=== PATIENT | female | born 1940 | race Caucasian/White ===

== ENCOUNTER 2022-09-02 06:09 | Inpatient (IN) | payer MEDICARE, OTHER ==
[~2022-09-02] VITALS: Ht 160 cm; Wt 80.2 kg
[2022-09-02] VITALS (32 sets, daily range): BP systolic 88–158; BP diastolic 44–89; PULSE 43–114; RESP 16–21; O2SAT 95–100
[2022-09-02] MEDS ORDERED: piperacillin/tazo 4.5gm/100ml 100 ML IV STA (06:14)
[2022-09-02] MEDS ORDERED: rocuronium 10mg/ml inj IV STA (06:14)
[2022-09-02] MEDS ORDERED: etomidate 2mg/ml inj. IV STA (06:14)
[2022-09-02] MEDS ORDERED: vancomycin/NS 1 GM ADD-VANTAGE 250 ML X 1 DOSE IV ONE (06:25)
[2022-09-02] MEDS ORDERED: propofol 1000mg/100ml bottle 100 ML IV SCH (06:25)
[2022-09-02] MEDS ORDERED: dexamethasone sod phosphate 10mg/ml inj IV STA (06:27)
[2022-09-02] MEDS ORDERED: normal saline 1000ml 1,000 ML IV ONE ×2 (06:30→07:55)
[2022-09-02] MEDS ORDERED: acetaminophen 650mg rectal suppository RC ONE (06:30)
--- NOTE | 2022-09-02 06:32 | NUR ---
ET placed 22 at the teeth positive color change, temp pierre initiated, soft restraints administered, oral gastric tube placed positive gastric contents with low intermitent suctioning.
--- NOTE | 2022-09-02 06:33 | NUR ---
Difficult airway airway per MD, edematous facial neck swelling noted. Addendum: 09/02/22 at 0634 by Jodee Carrillo RT Amended: Links added.
[2022-09-02] MEDS: propofol 1000mg/100ml bottle 100 ML IV SCH ×2 (06:53→13:46)
[2022-09-02 06:54] LABS: ABG BASE EXCESS -5.6 mmol/L (-2.0-2.0); ABG HCO3 17.9 mmol/L (22.0-26.0); ABG OXYGEN SATURATION 99.2 % (94-97); ABG PCO2 (T) 33.3 mmHg (32.0-45.0); ABG PO2 (T) 257.5 mmHg (75.0-100.0); ALLEN'S TEST POSITIVE; FCOHb 0.1 % (0.0-3.9); FMetHb 0.3 % (0.0-1.5); FO2Hb 98.8 % (94-97); PATIENT TEMPERATURE 39.9; PEEP 5 cm H2O; RESPIRATORY RATE 16 b/min; TIDAL VOLUME 400 mL; TOTAL HEMOGLOBIN 12.4 G/dl (12.0-16.0)
[2022-09-02 06:56] LABS: BASOPHILS # (AUTO) 0.1 X10'3 (0-0.2); BASOPHILS % (AUTO) 0.4 % (0-1); EOSINOPHILS # (AUTO) 0.1 X10'3 (0-0.9); EOSINOPHILS % (AUTO) 0.3 % (0-6); HEMATOCRIT 34.7 % (35.0-45.0); HEMOGLOBIN 11.3 g/dl (12.0-16.0); LYMPHOCYTES # (AUTO) 1.9 X10'3 (1.1-4.8); LYMPHOCYTES % (AUTO) 5.3 % (21-51); MEAN CORPUSCULAR HEMOGLOBIN 29.4 PG (27.0-31.0); MEAN CORPUSCULAR HGB CONC 32.5 g/dL (33.0-36.5); MEAN CORPUSCULAR VOLUME 90.5 FL (78-98); MEAN PLATELET VOLUME 8.9 FL (7.4-10.4); MONOCYTES # (AUTO) 2.1 X10'3 (0-0.9); NEUTROPHILS # (AUTO) 31.1 X10'3 (1.8-7.7); PLATELET COUNT 142 X10'3 (140-440); RED BLOOD COUNT 3.83 X10'6 (4.20-5.60); RED CELL DISTRIBUTION WIDTH 18.8 % (11.5-14.5)
[2022-09-02 07:11] LABS: CLARITY,URINE SLIGHTLY CLOUDY (Clear); COLOR,URINE STRAW (Yellow); GLUCOSE, URINE NEGATIVE (Neg); KETONES,URINE NEGATIVE (Neg); LEUKOCYTE ESTERASE ,URINE TRACE (Neg); NITRITES, URINE NEGATIVE (Neg); OCCULT BLOOD,URINE SMALL (Neg); PH,URINE 5.5 (4.8-8.0); PROTEIN,URINE 100 mg/dl (Neg); UROBILINOGEN,URINE 0.2 E.U/dL (0.2-1.0)
[2022-09-02 07:13] LABS: ALANINE AMINOTRANSFERASE 8 U/L (12-78); ALBUMIN 2.9 G/DL (3.4-5.0); ALBUMIN/GLOBULIN RATIO 0.7 (1.1-1.5); ALKALINE PHOSPHATASE 86 IU/L (46-116); ANION GAP 17 (8-16); ASPARTATE AMINO TRANSFERASE 16 U/L (10-37); BILIRUBIN,TOTAL 0.4 MG/DL (0.1-1.0); BLOOD UREA NITROGEN 65 MG/DL (7-18); BUN/CREATININE RATIO 30.4 (10.0-20.0); CALCIUM 9.6 MG/DL (8.5-10.1); CHLORIDE 108 MMOL/L (99-107); CREATININE 2.14 MG/DL (0.40-0.90); GLUCOSE 126 MG/DL (70-104); POTASSIUM 3.6 MMOL/L (3.5-5.1); SODIUM 145 MMOL/L (135-145); TOTAL CARBON DIOXIDE 20.5 MMOL/L (24-32); TOTAL PROTEIN 7.3 G/DL (6.4-8.2); eGFR 22 ML/MIN
[2022-09-02 07:19] LABS: WHITE BLOOD COUNT 35.3 X10'3 (4.5-11.0)
[2022-09-02] MEDS ORDERED: iohexol 300mg/ml 100ml inj. ONE (07:27)
[2022-09-02 07:30] LABS: UA COLLECTION TYPE FOLEY CATH
[2022-09-02 07:32] LABS: BACTERIA,URINE 4+ /HPF (Neg); COARSE GRANULAR CAST 0-3 /LPF (NEGATIVE); MUCUS STRANDS NONE SEEN /LPF (Neg); RBC,URINE 0-2 /HPF (0-2); SQUAMOUS EPITHELIAL CELL,UR FEW /LPF (FEW)
[2022-09-02 07:33] LABS: WBC CLUMPS,URINE FEW /HPF (NEGATIVE)
--- NOTE | 2022-09-02 07:55 | NUR ---
CENTRAL CONTROL ROOM OPERATOR AT BEDSIDE
[2022-09-02] MEDS ORDERED: rocuronium 10mg/ml inj IV ONE (08:00)
[2022-09-02] MEDS ORDERED: etomidate 2mg/ml inj. ONE (08:00)
[2022-09-02] MEDS ORDERED: magnesium hydroxide 30ml (MOM) UD suspension PO PRN (08:10)
[2022-09-02] MEDS ORDERED: ondansetron/PF 4mg/2ml inj IV PRN (08:10)
[2022-09-02] MEDS ORDERED: HYDROcodone/acetaminophen 5mg/325mg tablet PO PRN (08:10)
[2022-09-02] MEDS ORDERED: HYDROcodone/acetaminophen 10/325mg tab PO PRN (08:10)
[2022-09-02] MEDS: normal saline 1000ml 1,000 ML IV SCH (08:10)
[2022-09-02] MEDS ORDERED: acetaminophen 325mg tablet PO PRN (08:10)
[2022-09-02 08:14] LABS: ANISOCYTOSIS 2+; PLATELET ESTIMATE NORMAL; TOTAL CELLS COUNTED 100
--- NOTE | 2022-09-02 08:25 | NUR ---
RETURN TO CT, PT TOLERATED WELL.
[2022-09-02] MEDS: NORepinephrine 8mg/ 250ml NS 250 ML IV SCH ×2 (08:30→23:40)
[2022-09-02 09:12] LABS: TRIGLYCERIDES 100 MG/DL (20-135)
[2022-09-02 10:03] LABS: MAGNESIUM 1.5 MG/DL (1.5-2.4); PHOSPHORUS 3.8 MG/DL (2.3-4.5)
--- NOTE | 2022-09-02 10:30 | NUR ---
Received pt from ER via gurney, sedated & intubated. Hemodynamically stable.
[2022-09-02] MEDS ORDERED: LISI10TA27 PO (11:01)
[2022-09-02] MEDS ORDERED: fentaNYL/PF 50MCG/1 ML 2ML syringe IV PRN (11:20)
[2022-09-02] MEDS ORDERED: amiodarone 200mg tablet PO SCH (12:00)
[2022-09-02] MEDS: FENTANYL-0.9 % NACL/PF 100 ML IV PRN (12:06)
[2022-09-02] MEDS: pantoprazole 40MG/NS 100ML BAG 100 ML IV SCH (12:06)
[2022-09-02] MEDS ORDERED: piperacillin/tazo 3.375gm/50ml 50 ML IV SCH (12:21)
[2022-09-02] MEDS ORDERED: AMIO200T27 PO (12:38)
[2022-09-02] MEDS ORDERED: FAMO-49 PO (12:39)
[2022-09-02] MEDS ORDERED: HEPA100D36 SQ (12:40)
[2022-09-02] MEDS ORDERED: METH-348 PO (12:41)
[2022-09-02] MEDS ORDERED: LOP25T PO (12:41)
[2022-09-02] MEDS ORDERED: MULT-1085 PO (12:42)
[2022-09-02] MEDS ORDERED: MIRT-87 PO (12:42)
[2022-09-02] MEDS ORDERED: VENL-191 PO (12:44)
--- NOTE | 2022-09-02 12:52 | NUR ---
TF consult: Pt admit from [facility] for right sided neck swelling. Per H&P while in ED pt was lethargic and hypertensive with oxygen saturation at 91% and pt was intubated for respiratory failure. Pt with septic shock per H&P. Propofol visualized at bedside to be running at 7.11 mL/hr providing 188 kcal/day. TC to [facility] who states pt was on a regular SB6 diet and eating poorly, documented with 25% PO intake of one meal out of 3-4 meals. Per [facility] pt arrived on 08/31 already receiving TPN which was titrated down to 40 mL/hr using Clinimix non-E 06/21 in hopes of improving appetite and subsequently PO intake. Per [facility] pt with two BMs on 09/01, indicating return of bowel function s/p colectomy and ileostomy placement. [facility] states pt was to receive HD 09/01 however it was held. [facility] also states pt with a bed scaled wt of 78 kg taken 08/31. All information obtained from [facility] was d/w current bedside RN who confirms gas in ileostomy. D/w RN that pt will need a BSS following extubation prior to PO diet advancement as pt was on a texture modified diet at [facility] as well as the likelihood in needing an NGT s/p extubation to assist with meeting patient's estimated nutrient needs given reported poor PO intake SUPERVISOR PAIRING AND INSPECTING. Will continue to follow closely and make recommendations as appropriate. Recommendations: 1) Given Propofol at 7.11 mL/hr (188 kcal/day), continuous Vital HP with 60 mL/hr goal rate to provide 1440 mL total volume/day, 1440 kcal, 126 g protein, and 1204 mL water 2) Monitor Propofol rate and need to adjust recs; IF Propofol discontinued, continuous Vital HP with 65 mL/hr goal rate 3) Additional water flush per MD given renal status; monitor serum Na 4) Prealbumin q Tuesday/; daily scaled weights 5) Routine bowel care; LBM 09/01 x 2 per [facility] 6) BSS with ST prior to PO diet advancement following extubation given texture modified diet at [facility] Addendum: 09/02/22 at [address] Amended: Links added.
[2022-09-02] MEDS: piperacillin/tazo 3.375gm/50ml 50 ML IV SCH ×2 (13:46→20:51)
[2022-09-02] MEDS ORDERED: dexamethasone inj 4 MG in dextrose 5%-water 100 ML IV SCH (14:00)
[2022-09-02] MEDS ORDERED: dexamethasone inj 4 MG in normal saline 50ml IV soln 50 ML IV SCH (14:09)
[2022-09-02] MEDS: dexamethasone inj 4 MG in normal saline 50ml IV soln 50 ML IV SCH ×2 (15:08→20:50)
[2022-09-02] MEDS ORDERED: heparin, porcine 5000 units/ml vial SQ SCH ×2 (16:00)
[2022-09-02] MEDS: ipratropium/albuterol 3ml nebule NEB SCH ×2 (16:44→19:17)
--- NOTE | 2022-09-02 17:19 | NUR ---
Pt remains sedated on minimal dose of Fentanyl & Propofol. In sinus andrew. Occ drops briefly to the high 30's. BP stable. Scant secretions from ETT. FiO2 weaned to 30%. Duonebs started for high peak pressures. Good UO. Dr. Coyle into see pt. Stated dialysis not needed today. No increase in swelling of right neck noted. TF started for nutritional support.
[2022-09-02] MEDS: heparin, porcine 5000 units/ml vial SQ SCH (20:51)
[2022-09-02] MEDS ORDERED: amiodarone 150mg/dext, iso-os 100 ML IV ONE (22:05)
[2022-09-02 22:36] LABS: ALANINE AMINOTRANSFERASE 14 U/L (12-78); ALBUMIN 2.2 G/DL (3.4-5.0); ALBUMIN/GLOBULIN RATIO 0.6 (1.1-1.5); ALKALINE PHOSPHATASE 71 IU/L (46-116); ANION GAP 14 (8-16); ASPARTATE AMINO TRANSFERASE 9 U/L (10-37); BILIRUBIN,TOTAL 0.3 MG/DL (0.1-1.0); BLOOD UREA NITROGEN 72 MG/DL (7-18); BUN/CREATININE RATIO 31.4 (10.0-20.0); CALCIUM 8.7 MG/DL (8.5-10.1); CHLORIDE 113 MMOL/L (99-107); CREATININE 2.29 MG/DL (0.40-0.90); GLUCOSE 147 MG/DL (70-104); MAGNESIUM 1.4 MG/DL (1.5-2.4); PHOSPHORUS 5.1 MG/DL (2.3-4.5); POTASSIUM 3.8 MMOL/L (3.5-5.1); SODIUM 145 MMOL/L (135-145); TOTAL CARBON DIOXIDE 18.2 MMOL/L (24-32); TOTAL PROTEIN 6.1 G/DL (6.4-8.2); eGFR 21 ML/MIN
[2022-09-02] MEDS: amiodarone/D5 360MG/200ML BAG 200 ML IV SCH (23:31)
[2022-09-03] VITALS (46 sets, daily range): BP systolic 94–142; BP diastolic 43–84; PULSE 73–112; RESP 16–27; O2SAT 94–99
[2022-09-03] MEDS: ipratropium/albuterol 3ml nebule NEB SCH ×7 (00:12→23:09)
[2022-09-03] MEDS: dexamethasone inj 4 MG in normal saline 50ml IV soln 50 ML IV SCH ×4 (02:08→19:57)
[2022-09-03] MEDS: normal saline 1000ml 1,000 ML IV SCH ×2 (02:08→10:50)
[2022-09-03 03:23] LABS: ABG BASE EXCESS -8.5 mmol/L (-2.0-2.0); ABG HCO3 16.1 mmol/L (22.0-26.0); ABG OXYGEN SATURATION 97.2 % (94-97); ABG PCO2 (T) 30.1 mmHg (32.0-45.0); ABG PO2 (T) 105.5 mmHg (75.0-100.0); ALLEN'S TEST POSITIVE; FCOHb 0.3 % (0.0-3.9); FMetHb 0.4 % (0.0-1.5); FO2Hb 96.5 % (94-97); PEEP 5 cm H2O; RESPIRATORY RATE 16 b/min; TIDAL VOLUME 400 mL; TOTAL HEMOGLOBIN 10.4 G/dl (12.0-16.0)
[2022-09-03 04:39] LABS: BASOPHILS % (AUTO) 0 % (0-1); EOSINOPHILS % (AUTO) 0 % (0-6); HEMATOCRIT 30.2 % (35.0-45.0); HEMOGLOBIN 9.4 g/dl (12.0-16.0); LYMPHOCYTES # (AUTO) 1.5 X10'3 (1.1-4.8); LYMPHOCYTES % (AUTO) 3.8 % (21-51); MEAN CORPUSCULAR HEMOGLOBIN 29.1 PG (27.0-31.0); MEAN CORPUSCULAR HGB CONC 31.2 g/dL (33.0-36.5); MEAN CORPUSCULAR VOLUME 93.5 FL (78-98); MEAN PLATELET VOLUME 9.3 FL (7.4-10.4); MONOCYTES % (AUTO) 2.6 % (2-12); NEUTROPHILS # (AUTO) 36.3 X10'3 (1.8-7.7); NEUTROPHILS % (AUTO) 93.6 % (42-75); PLATELET COUNT 154 X10'3 (140-440); RED BLOOD COUNT 3.23 X10'6 (4.20-5.60); RED CELL DISTRIBUTION WIDTH 19.7 % (11.5-14.5)
[2022-09-03 04:52] LABS: ALANINE AMINOTRANSFERASE 15 U/L (12-78); ALBUMIN 2.2 G/DL (3.4-5.0); ALBUMIN/GLOBULIN RATIO 0.6 (1.1-1.5); ALKALINE PHOSPHATASE 73 IU/L (46-116); ANION GAP 15 (8-16); ASPARTATE AMINO TRANSFERASE 8 U/L (10-37); BILIRUBIN,TOTAL 0.3 MG/DL (0.1-1.0); BLOOD UREA NITROGEN 74 MG/DL (7-18); BUN/CREATININE RATIO 32.5 (10.0-20.0); CALCIUM 8.8 MG/DL (8.5-10.1); CHLORIDE 112 MMOL/L (99-107); CREATININE 2.28 MG/DL (0.40-0.90); GLUCOSE 189 MG/DL (70-104); MAGNESIUM 1.4 MG/DL (1.5-2.4); PHOSPHORUS 5.1 MG/DL (2.3-4.5); POTASSIUM 3.7 MMOL/L (3.5-5.1); PREALBUMIN 18.6 MG/DL (19-36); SODIUM 145 MMOL/L (135-145); TOTAL CARBON DIOXIDE 17.7 MMOL/L (24-32); TOTAL PROTEIN 6.2 G/DL (6.4-8.2); TRIGLYCERIDES 88 MG/DL (20-135); eGFR 21 ML/MIN
[2022-09-03] MEDS: piperacillin/tazo 3.375gm/50ml 50 ML IV SCH (04:57)
[2022-09-03] MEDS: propofol 1000mg/100ml bottle 100 ML IV SCH (04:58)
[2022-09-03 05:03] LABS: TOTAL CELLS COUNTED 100
[2022-09-03 05:04] LABS: ANISOCYTOSIS 2+; PLATELET ESTIMATE NORMAL; POIKILOCYTOSIS FEW; SCHISTOCYTES FEW
[2022-09-03] MEDS: amiodarone/D5 360MG/200ML BAG 200 ML IV SCH (05:33)
--- NOTE | 2022-09-03 06:30 | NUR ---
Patient in room CICU 2008. I have received report from Bell DAMON and had the opportunity to ask questions and assume patient care.
--- NOTE | 2022-09-03 06:31 | NUR ---
Problems reprioritized. Patient report given, questions answered & plan of care reviewed with Bell DAMON.
--- NOTE | 2022-09-03 06:37 | NUR ---
Patient in room CICU 2008. I have received report from Barbara DAMON and had the opportunity to ask questions and assume patient care.
[2022-09-03] MEDS ORDERED: dexmedetomidin/NS 400mcg/100ml 100 ML IV PRN (07:35)
[2022-09-03] MEDS: heparin, porcine 5000 units/ml vial SQ SCH ×2 (07:49→19:59)
[2022-09-03] MEDS ORDERED: normal saline 500ml IV soln 500 ML IV ONE (08:00)
[2022-09-03] MEDS: amiodarone 200mg tablet PO SCH (08:29)
[2022-09-03] MEDS: pantoprazole 40MG/NS 100ML BAG 100 ML IV SCH (08:29)
[2022-09-03] MEDS: vancomycin inj 500 MG in normal saline 100ml IV soln 100 ML IV SCH (09:14)
--- NOTE | 2022-09-03 11:55 | NUR ---
Dr. Bradford/ID Doctor at bedside.
--- NOTE | 2022-09-03 11:59 | NUR ---
OG accidentally came out while placing corpak,Dr. Winston aware.
--- NOTE | 2022-09-03 12:15 | NUR ---
Dr. Winston failed to place corpak, tube is coiled per KUWade,re attempted and re adjusted by Bell DAMON without success.Feeding off at this time.
--- NOTE | 2022-09-03 12:30 | NUR ---
Patient started on CPAP.
[2022-09-03] MEDS ORDERED: magnesium 2GM in 50ml NS 50 ML IV ONE ×2 (13:15→17:20)
[2022-09-03] MEDS ORDERED: LIDOcaine 1% 30ml preserv. free vial ONE (13:27)
[2022-09-03] MEDS: FENTANYL-0.9 % NACL/PF 100 ML IV PRN ×2 (13:50→15:02)
--- NOTE | 2022-09-03 13:59 | NUR ---
PRESSURE ULCER EDUCATION: DEFINITION: A pressure ulcer is an area of skin that breaks down when you stay in one position too long. The constant pressure against the skin reduces the blood flow to that area and the affected tissue dies. CAUSES: "Being bedridden or in a wheelchair "Fragile skin "Having a chronic condition, such as diabetes or vascular disease "Inability to move certain parts of your body without assistance "Older age "Incontinence of urine or stool SYMPTOMS: "A reddened area that DOES NOT turn white when pressed on - this can be the beginning of a pressure ulcer "A blister, deep sore or a crater - these can be advanced pressure ulcers FIRST AID: "Relieve the pressure on this area "Keep the area clean and dry "Call your primary doctor if you see any of the above symptoms "DO NOT massage the area "DO NOT use a donut shaped or ring shaped pillow- these actually interfere with the blood flow and cause complications PREVENTION: "Check for pressure ulcers everyday "Change position at least every two hours to relieve pressure "Use items that help relieve pressure- pillows, sheepskin, foam padding, and powders. "Keep skin clean and dry "Eat healthy well balanced meals "Exercise daily IF YOU SEE ANY OF THESE SYMPTOMS WHILE IN THE HOSPITAL - TELL YOUR NURSE IMMEDIATELY. IF YOU SEE ANY OF THESE SYMPTOMS WHILE AT HOME OR HAVE ANY QUESTIONS OR CONCERNS ABOUT PRESSURE ULCERS - CALL YOUR PRIMARY DOCTOR IMMEDIATELY. Addendum: 09/03/22 at 1400 by Cricket May RN Amended: Links added.
--- NOTE | 2022-09-03 14:23 | NUR ---
RN Re attempting to place NG for feeding, Dr. Winston states "place Ng after patient is extubated".
--- NOTE | 2022-09-03 14:37 | NUR ---
Pollo RT at bedside, Bell RN, Vick RN at bedside. Patient tolerated well; successfully extubated. V/s saturation 98%, HR 82 NSR,BP 117/67.
--- NOTE | 2022-09-03 14:54 | NUR ---
Dr. Coyle at bedside.No dialysis at this time.
[2022-09-03] MEDS ORDERED: SODIUM BICARB 150mEq/D5W 1L 1,000 ML IV SCH (15:10)
[2022-09-03] MEDS ORDERED: sodium bicarbonate (8.4%) inj. 150 MEQ in dextrose 5%-water 850 ML IV SCH (15:22)
[2022-09-03] MEDS ORDERED: sodium bicarbonate (8.4%) inj. 150 MEQ in dextrose 5%-water 1,000 ML IV SCH (15:26)
[2022-09-03] MEDS ORDERED: [UNRECOGNIZED DRUG - OTHER] SQ SCH (16:00)
[2022-09-03] MEDS ORDERED: HEPARIN SODIUM PORCINE SQ SCH (16:00)
[2022-09-03] MEDS: NORepinephrine 8mg/ 250ml NS 250 ML IV SCH (17:01)
--- NOTE | 2022-09-03 18:45 | NUR ---
Problems reprioritized. Patient report given, questions answered & plan of care reviewed with Orlando DAMON.
--- NOTE | 2022-09-03 19:05 | NUR ---
Patient in room CICU 2008. I have received report from Vick (MUD JACK NOZZLEMAN) and had the opportunity to ask questions and assume patient care.
[2022-09-04] VITALS (24 sets, daily range): BP systolic 118–161; BP diastolic 50–79; PULSE 18–87; RESP 12–23; TEMP 97.8–98; O2SAT 94–99
[2022-09-04] MEDS: normal saline 1000ml 1,000 ML IV SCH ×2 (00:10→09:56)
[2022-09-04] MEDS: dexamethasone inj 4 MG in normal saline 50ml IV soln 50 ML IV SCH ×4 (01:53→19:30)
[2022-09-04 02:23] LABS: BASOPHILS % (AUTO) 0.1 % (0-1); EOSINOPHILS % (AUTO) 0 % (0-6); HEMATOCRIT 25.2 % (35.0-45.0); LYMPHOCYTES # (AUTO) 1.3 X10'3 (1.1-4.8); LYMPHOCYTES % (AUTO) 4.7 % (21-51); MEAN CORPUSCULAR HEMOGLOBIN 29.6 PG (27.0-31.0); MEAN CORPUSCULAR HGB CONC 31.9 g/dL (33.0-36.5); MEAN CORPUSCULAR VOLUME 92.9 FL (78-98); MEAN PLATELET VOLUME 9.4 FL (7.4-10.4); MONOCYTES % (AUTO) 3.7 % (2-12); NEUTROPHILS # (AUTO) 25.5 X10'3 (1.8-7.7); NEUTROPHILS % (AUTO) 91.5 % (42-75); PLATELET COUNT 132 X10'3 (140-440); RED BLOOD COUNT 2.71 X10'6 (4.20-5.60); RED CELL DISTRIBUTION WIDTH 20.1 % (11.5-14.5)
--- NOTE | 2022-09-04 02:25 | NUR ---
complete bed change done, bed bath done at this time.
[2022-09-04 02:28] LABS: ALANINE AMINOTRANSFERASE 12 U/L (12-78); ALBUMIN 2.1 G/DL (3.4-5.0); ALBUMIN/GLOBULIN RATIO 0.6 (1.1-1.5); ALKALINE PHOSPHATASE 63 IU/L (46-116); ANION GAP 12 (8-16); ASPARTATE AMINO TRANSFERASE 9 U/L (10-37); BILIRUBIN,TOTAL 0.2 MG/DL (0.1-1.0); BLOOD UREA NITROGEN 72 MG/DL (7-18); BUN/CREATININE RATIO 33.3 (10.0-20.0); CALCIUM 8.5 MG/DL (8.5-10.1); CHLORIDE 116 MMOL/L (99-107); CREATININE 2.16 MG/DL (0.40-0.90); GLUCOSE 129 MG/DL (70-104); MAGNESIUM 1.9 MG/DL (1.5-2.4); PHOSPHORUS 5.1 MG/DL (2.3-4.5); POTASSIUM 3.9 MMOL/L (3.5-5.1); SODIUM 148 MMOL/L (135-145); TOTAL CARBON DIOXIDE 20.1 MMOL/L (24-32); TOTAL PROTEIN 5.7 G/DL (6.4-8.2); eGFR 22 ML/MIN
[2022-09-04 02:35] LABS: WHITE BLOOD COUNT 27.9 X10'3 (4.5-11.0)
[2022-09-04] MEDS: ipratropium/albuterol 3ml nebule NEB SCH ×2 (03:43→07:54)
--- NOTE | 2022-09-04 06:11 | NUR ---
Problems reprioritized. Patient report given, questions answered & plan of care reviewed with Amadeo.
--- NOTE | 2022-09-04 06:15 | NUR ---
Patient in room CICU 2008. I have received report from vilma DAMON and had the opportunity to ask questions and assume patient care.
[2022-09-04 06:56] LABS: ANISOCYTOSIS 3+; PLATELET ESTIMATE DECREASED; POIKILOCYTOSIS FEW; SCHISTOCYTES FEW; TOTAL CELLS COUNTED 100
[2022-09-04] MEDS ORDERED: amiodarone 200mg tablet PO SCH (08:00)
[2022-09-04] MEDS: amiodarone 200mg tablet PO SCH (08:00)
[2022-09-04] MEDS ORDERED: multivitamins, therapeutics tablet PO SCH (08:00)
[2022-09-04] MEDS: pantoprazole 40MG/NS 100ML BAG 100 ML IV SCH (08:04)
[2022-09-04] MEDS: heparin, porcine 5000 units/ml vial SQ SCH ×2 (08:05→19:30)
--- NOTE | 2022-09-04 08:30 | NUR ---
Paged ST for swallow eval.
[2022-09-04] MEDS: vancomycin inj 500 MG in normal saline 100ml IV soln 100 ML IV SCH (08:40)
[2022-09-04 09:59] LABS: COMPLEMENT C3, SERUM 140 mg/dL (82-167); COMPLEMENT C4, SERUM 32 mg/dL (12-38)
--- NOTE | 2022-09-04 11:29 | NUR ---
Reassessment: Per EMR pt extubated 09/03. Multiple attempts at NGT placement were unsuccessful per verbal d/w RNs and MD. Pt remains NPO at this time pending BSS with ST however given no ST coverage over the weekend RN to perform BSS. Given reported poor PO intake hx pt will likely need EN to meet estimated nutrient needs however none to be implemented at this time given no access. LBM 09/03 with 450 mL stool output per I&O. Will continue to follow closely and make recommendations as appropriate. Recommendations: 1) BSS with ST prior to PO diet advancement given texture modified diet at [facility]; recommend regular diet given predicted suboptimal PO intake 2) Monitor need for ONS/additional protein with diet advancement 3) NGT placement for EN as able if pt agreeable 4) Bowel care per rx 5) Weekly scaled weights Addendum: 09/04/22 at [address] Amended: Links added.
--- NOTE | 2022-09-04 14:00 | NUR ---
Failed attempt to place corpak and NG tube, Dr. Winston attempted as well.Bedside swallow eval unable to perform due to high risk of aspiration secodary to swollen right parotid gland.Hold off NG tube at this time.Awaiting for room assignment.Urine output is adequate.
[2022-09-04 14:19] LABS: WHITE BLOOD COUNT 38.8 X10'3 (4.5-11.0)
[2022-09-04] MEDS: methylphenidate 5mg tablet PO SCH (15:18)
--- NOTE | 2022-09-04 16:44 | NUR ---
Dr. Mccarthy at bedside; aware patient unable to swallow at this time including PO medications; unable to place Copak. PICC line D/C'd per Dr. Vora.
[2022-09-04 16:56] LABS: ANTINUCLEAR ANTIBODIES Negative (Negative)
--- NOTE | 2022-09-04 17:30 | NUR ---
Patient transferred to O/N 4006 with all belongings (Hearing aids and upper/lower partials.) Report given with all questions answered. Daughter at bedside.
[2022-09-04] MEDS: metoprolol tartrate 12.5mg (1/2 tablet) PO SCH (19:21)
[2022-09-04] MEDS: mirtazapine 15mg tablet PO SCH (19:21)
[2022-09-04] MEDS: ceFAZolin/D5W- 1GM premix 50 ML IV SCH (20:26)
[2022-09-05] MEDS: dexamethasone inj 4 MG in normal saline 50ml IV soln 50 ML IV SCH (02:05)
[2022-09-05] MEDS: normal saline 1000ml 1,000 ML IV SCH ×2 (02:57→05:42)
[2022-09-05 06:00] VITALS: BP 160/73; PULSE 84; RESP 22; TEMP 98; O2SAT 95
--- NOTE | 2022-09-05 06:27 | NUR ---
Problems reprioritized. Patient report given, questions answered & plan of care reviewed with MARISOL Miller.
--- NOTE | 2022-09-05 06:45 | NUR ---
Patient in room ORTHO 4006. I have received report from MARISOL FRYE and had the opportunity to ask questions and assume patient care.
[2022-09-05] MEDS: methylphenidate 5mg tablet PO SCH ×2 (07:30→18:38)
[2022-09-05] MEDS ORDERED: VANCOMYCIN LEVEL IV ONE (08:30)
[2022-09-05] MEDS: heparin, porcine 5000 units/ml vial SQ SCH ×2 (09:07→19:15)
[2022-09-05 10:00] VITALS: BP 174/80; PULSE 76; RESP 21; TEMP 98; O2SAT 97
[2022-09-05 10:54] LABS: BASOPHILS # (AUTO) 0.1 X10'3 (0-0.2); BASOPHILS % (AUTO) 0.3 % (0-1); EOSINOPHILS % (AUTO) 0 % (0-6); HEMATOCRIT 27.9 % (35.0-45.0); HEMOGLOBIN 9.1 g/dl (12.0-16.0); LYMPHOCYTES # (AUTO) 1.3 X10'3 (1.1-4.8); LYMPHOCYTES % (AUTO) 7.3 % (21-51); MEAN CORPUSCULAR HEMOGLOBIN 29.6 PG (27.0-31.0); MEAN CORPUSCULAR HGB CONC 32.5 g/dL (33.0-36.5); MEAN CORPUSCULAR VOLUME 91.2 FL (78-98); MEAN PLATELET VOLUME 9.3 FL (7.4-10.4); MONOCYTES # (AUTO) 0.8 X10'3 (0-0.9); MONOCYTES % (AUTO) 4.6 % (2-12); NEUTROPHILS # (AUTO) 15.7 X10'3 (1.8-7.7); NEUTROPHILS % (AUTO) 87.8 % (42-75); PLATELET COUNT 194 X10'3 (140-440); RED BLOOD COUNT 3.06 X10'6 (4.20-5.60); RED CELL DISTRIBUTION WIDTH 19.8 % (11.5-14.5); WHITE BLOOD COUNT 17.9 X10'3 (4.5-11.0)
[2022-09-05] MEDS: amiodarone 200mg tablet PO SCH (11:05)
[2022-09-05] MEDS: venlafaxine 37.5mg tablet PO SCH (11:05)
[2022-09-05] MEDS: metoprolol tartrate 12.5mg (1/2 tablet) PO SCH ×2 (11:07→19:14)
[2022-09-05] MEDS: famotidine 20mg tablet PO SCH (11:07)
[2022-09-05] MEDS: ceFAZolin/D5W- 1GM premix 50 ML IV SCH ×2 (11:07→19:13)
[2022-09-05 11:09] LABS: ALANINE AMINOTRANSFERASE 12 U/L (12-78); ALBUMIN 2.5 G/DL (3.4-5.0); ALBUMIN/GLOBULIN RATIO 0.7 (1.1-1.5); ALKALINE PHOSPHATASE 74 IU/L (46-116); ANION GAP 16 (8-16); ASPARTATE AMINO TRANSFERASE 13 U/L (10-37); BILIRUBIN,TOTAL 0.3 MG/DL (0.1-1.0); BLOOD UREA NITROGEN 69 MG/DL (7-18); BUN/CREATININE RATIO 37.3 (10.0-20.0); CALCIUM 8.8 MG/DL (8.5-10.1); CHLORIDE 120 MMOL/L (99-107); CREATININE 1.85 MG/DL (0.40-0.90); GLUCOSE 103 MG/DL (70-104); MAGNESIUM 1.9 MG/DL (1.5-2.4); PHOSPHORUS 4.5 MG/DL (2.3-4.5); POTASSIUM 3.7 MMOL/L (3.5-5.1); SODIUM 154 MMOL/L (135-145); TOTAL CARBON DIOXIDE 18.3 MMOL/L (24-32); TOTAL PROTEIN 6.3 G/DL (6.4-8.2); eGFR 26 ML/MIN
[2022-09-05] MEDS ORDERED: dextrose 5%-normal saline 1,000 ML IV SCH (11:35)
[2022-09-05 12:08] LABS: TOTAL CELLS COUNTED 100
[2022-09-05 12:21] LABS: NUCLEATED RED BLOOD CELLS 0 /100WBC (0-0)
[2022-09-05 12:45] LABS: ANISOCYTOSIS 2+; NUCLEATED RED BLOOD CELLS 1 /100WBC (0-0); PLATELET ESTIMATE NORMAL
[2022-09-05 12:47] LABS: SCHISTOCYTES FEW
[2022-09-05] MEDS: dextrose 5%-water 1,000 ML IV SCH (16:31)
[2022-09-05 18:00] VITALS: BP 186/85; PULSE 66; RESP 11; TEMP 97.6; O2SAT 96
--- NOTE | 2022-09-05 18:12 | NUR ---
Problems reprioritized. Patient report given, questions answered & plan of care reviewed with MARISOL FRYE.
[2022-09-05] MEDS: mirtazapine 15mg tablet PO SCH (19:14)
[2022-09-05 20:00] VITALS: RESP 12; O2SAT 96
[2022-09-05 22:00] VITALS: BP 172/65; PULSE 75; RESP 16; TEMP 97.5; O2SAT 96
[2022-09-06] MEDS: dextrose 5%-water 1,000 ML IV SCH ×2 (02:42→12:06)
[2022-09-06 06:00] VITALS: BP 160/55; PULSE 62; RESP 16; TEMP 98.9; O2SAT 98
[2022-09-06 06:10] LABS: BASOPHILS % (AUTO) 0.1 % (0-1); EOSINOPHILS % (AUTO) 0.3 % (0-6); LYMPHOCYTES # (AUTO) 1.1 X10'3 (1.1-4.8); LYMPHOCYTES % (AUTO) 10.4 % (21-51); MEAN CORPUSCULAR HGB CONC 32.2 g/dL (33.0-36.5); MEAN CORPUSCULAR VOLUME 93.3 FL (78-98); MEAN PLATELET VOLUME 9.4 FL (7.4-10.4); MONOCYTES # (AUTO) 1.1 X10'3 (0-0.9); MONOCYTES % (AUTO) 10.1 % (2-12); NEUTROPHILS # (AUTO) 8.7 X10'3 (1.8-7.7); NEUTROPHILS % (AUTO) 79.1 % (42-75); PLATELET COUNT 178 X10'3 (140-440); RED CELL DISTRIBUTION WIDTH 19.9 % (11.5-14.5); WHITE BLOOD COUNT 11.1 X10'3 (4.5-11.0)
[2022-09-06 06:16] LABS: ALANINE AMINOTRANSFERASE 12 U/L (12-78); ALBUMIN 2.4 G/DL (3.4-5.0); ALBUMIN/GLOBULIN RATIO 0.7 (1.1-1.5); ALKALINE PHOSPHATASE 70 IU/L (46-116); ANION GAP 13 (8-16); ASPARTATE AMINO TRANSFERASE 15 U/L (10-37); BILIRUBIN,TOTAL 0.3 MG/DL (0.1-1.0); BLOOD UREA NITROGEN 62 MG/DL (7-18); BUN/CREATININE RATIO 34.3 (10.0-20.0); CALCIUM 8.6 MG/DL (8.5-10.1); CHLORIDE 116 MMOL/L (99-107); CREATININE 1.81 MG/DL (0.40-0.90); GLUCOSE 97 MG/DL (70-104); MAGNESIUM 1.9 MG/DL (1.5-2.4); PHOSPHORUS 4.2 MG/DL (2.3-4.5); POTASSIUM 3.4 MMOL/L (3.5-5.1); SODIUM 149 MMOL/L (135-145); TOTAL CARBON DIOXIDE 20.2 MMOL/L (24-32); TOTAL PROTEIN 5.9 G/DL (6.4-8.2); eGFR 27 ML/MIN
--- NOTE | 2022-09-06 06:25 | NUR ---
Problems reprioritized. Patient report given, questions answered & plan of care reviewed with MARISOL Miller.
--- NOTE | 2022-09-06 06:46 | NUR ---
Patient in room ORTHO 4006. I have received report from MARISOL FRYE and had the opportunity to ask questions and assume patient care.
[2022-09-06 07:33] LABS: ANISOCYTOSIS 2+; PLATELET ESTIMATE NORMAL; TOTAL CELLS COUNTED 100
[2022-09-06 07:34] LABS: SCHISTOCYTES FEW; TEAR DROP CELLS FEW
[2022-09-06 10:00] VITALS: BP 162/67; PULSE 66; RESP 16; TEMP 98.3; O2SAT 94
[2022-09-06] MEDS: heparin, porcine 5000 units/ml vial SQ SCH (10:17)
[2022-09-06] MEDS: venlafaxine 37.5mg tablet PO SCH (10:17)
[2022-09-06] MEDS: amiodarone 200mg tablet PO SCH (10:17)
[2022-09-06] MEDS: famotidine 20mg tablet PO SCH (10:17)
[2022-09-06 10:21] VITALS: BP_SYST 167; PULSE 66
[2022-09-06] MEDS: metoprolol tartrate 12.5mg (1/2 tablet) PO SCH (10:21)
[2022-09-06] MEDS: methylphenidate 5mg tablet PO SCH (10:21)
[2022-09-06] MEDS: ceFAZolin/D5W- 1GM premix 50 ML IV SCH (10:21)
--- NOTE | 2022-09-06 12:20 | NUR ---
Consent obtained for TDC removal; Dr. Porras injected 10ml lidocaine to site; removed TDC, pressure held; hemostasis achieved; sterile 4x4's and tegaderm applied to site; Patient's RN updated.
[2022-09-06] MEDS ORDERED: ondansetron 4mg rapidly disintigrating tab PO PRN (15:35)
--- NOTE | 2022-09-06 15:51 | NUR ---
Problems reprioritized. Patient report given, questions answered & plan of care reviewed with SANAM WATTS.
--- NOTE | 2022-09-06 15:55 | NUR ---
Patient in room ORTHO 4006. I have received report from MARISOL Miller and had the opportunity to ask questions and assume patient care.
[2022-09-06] MEDS ORDERED: famotidine 20mg tablet PO SCH (16:24)
--- NOTE | 2022-09-06 17:30 | NUR ---
I have reviewed and agree with interventions, assessments, and documentation by Sukhdev Sierra LVN.
--- NOTE | 2022-09-06 17:39 | NUR ---
Pt stable for transfer to [facility]. Pt left with all belongings. Family was present when [facility] arrived to transport patient and will be following behind [facility] to [facility]. Patient left facility at 1730 and left in [facility] with [facility] personnel to [facility].
== END 2022-09-06 17:30 | DRG 871 ==
LOC: ER 06:10 → ED HOLD 08:17 → CICU 2S 09:53 → ORTHO 4S 09-04 17:48
PROVIDERS: ADMIT Internal Medicine Critical Care Medicine; ATTEND Internal Medicine Critical Care Medicine
PROC: 5A1945Z Respiratory Ventilation, 24-96 Consecutive Hours (ICD-10-PCS; principal; 2022-09-02)
PROC: 0BH17EZ Insertion of Endotracheal Airway into Trachea, Via Natural or Artificial Opening (ICD-10-PCS; 2022-09-02)
PROC: BW2F1ZZ Computerized Tomography (CT Scan) of Neck using Low Osmolar Contrast (ICD-10-PCS; 2022-09-02)
PROC: 05PYX3Z Removal of Infusion Device from Upper Vein, External Approach (ICD-10-PCS; 2022-09-04)
PROC: 0JPT3XZ Removal of Tunneled Vascular Access Device from Trunk Subcutaneous Tissue and Fascia, Percutaneous Approach (ICD-10-PCS; 2022-09-06)
PROC: 02PYX3Z Removal of Infusion Device from Great Vessel, External Approach (ICD-10-PCS; 2022-09-06)
DX: A41.01 Sepsis due to Methicillin susceptible Staphylococcus aureus (principal); J18.9 Pneumonia, unspecified organism; J96.01 Acute respiratory failure with hypoxia; R65.21 Severe sepsis with septic shock; N17.0 Acute kidney failure with tubular necrosis; N39.0 Urinary tract infection, site not specified; L03.211 Cellulitis of face; E87.20 Acidosis, unspecified; E46 Unspecified protein-calorie malnutrition; E87.0 Hyperosmolality and hypernatremia; F32.A Depression, unspecified; K11.21 Acute sialoadenitis; E83.42 Hypomagnesemia; R13.10 Dysphagia, unspecified; I48.0 Paroxysmal atrial fibrillation; M27.2 Inflammatory conditions of jaws; E79.0 Hyperuricemia without signs of inflammatory arthritis and tophaceous disease; B96.20 Unspecified Escherichia coli [E. coli] as the cause of diseases classified elsewhere; E87.8 Other disorders of electrolyte and fluid balance, not elsewhere classified; I12.9 Hypertensive chronic kidney disease with stage 1 through stage 4 chronic kidney disease, or unspecified chronic kidney disease; N18.9 Chronic kidney disease, unspecified; Z90.710 Acquired absence of both cervix and uterus; Z90.49 Acquired absence of other specified parts of digestive tract; Z87.440 Personal history of urinary (tract) infections; Z80.41 Family history of malignant neoplasm of ovary; Z80.0 Family history of malignant neoplasm of digestive organs; Z68.31 Body mass index [BMI] 31.0-31.9, adult; Z93.2 Ileostomy status
CPT/HCPCS: 36415; 36589; 36600; 70491; 71045; 74018; 80053; 81001; 82803; 82948; 83605; 83735; 84100; 84134; 84145; 84439; 84443; 84478; 84484; 85007; 85018; 85025; 85610; 86038; 86160; 87040; 87070; 87077; 87088; 87186; 92508; 92616; 93005; 93306; 94002; 94003; 94640; 94760; 94799; 97161; 97530; 97535; 99285; A4421; A4615; A4649; A6212; A6213; A6258; A6446; A6449; A7015; A9900; C1758; C9113; G0378; J0282; J0690; J1100; J1644; J2543; J2704; J3010; J3370; J3475; J3490; J7030; J7040; J7042; J7070; Q9967

== ENCOUNTER 2022-09-18 12:37 | Inpatient (IN) | payer MEDICARE, OTHER ==
[~2022-09-18] VITALS: Ht 162.6 cm; Wt 74.8 kg
[~2022-09-18 12:37] MED LIST: AMIO200T27 PO; FAMO-49 PO; HEPA100D36 SQ; LOP25T PO; METH-348 PO; MIRT-87 PO; MULT-1085 PO; SULF1TAB49 PO; VENL-191 PO
[2022-09-18] MEDS ORDERED: amiodarone 150mg/dext, iso-os 100 ML IV ONE ×2 (13:15→17:05)
--- NOTE | 2022-09-18 13:21 | NUR ---
COLOSTOMY TO RUQ SECURE AND INTACT.
[2022-09-18 13:32] LABS: BILIRUBIN,URINE NEGATIVE (Neg); CLARITY,URINE CLOUDY (Clear); COLOR,URINE YELLOW (Yellow); GLUCOSE, URINE NEGATIVE (Neg); KETONES,URINE NEGATIVE (Neg); LEUKOCYTE ESTERASE ,URINE LARGE (Neg); NITRITES, URINE POSITIVE (Neg); OCCULT BLOOD,URINE TRACE-INTACT (Neg); PH,URINE 6.5 (4.8-8.0); PROTEIN,URINE 30 mg/dl (Neg); UROBILINOGEN,URINE 0.2 E.U/dL (0.2-1.0)
[2022-09-18 13:35] LABS: UA COLLECTION TYPE FOLEY CATH
[2022-09-18 13:37] LABS: BASOPHILS # (AUTO) 0.1 X10'3 (0-0.2); BASOPHILS % (AUTO) 0.9 % (0-1); EOSINOPHILS # (AUTO) 0.1 X10'3 (0-0.9); EOSINOPHILS % (AUTO) 0.8 % (0-6); HEMATOCRIT 24.1 % (35.0-45.0); HEMOGLOBIN 7.6 g/dl (12.0-16.0); LYMPHOCYTES # (AUTO) 2.8 X10'3 (1.1-4.8); LYMPHOCYTES % (AUTO) 23.2 % (21-51); MEAN CORPUSCULAR HEMOGLOBIN 29.5 PG (27.0-31.0); MEAN CORPUSCULAR HGB CONC 31.4 g/dL (33.0-36.5); MEAN CORPUSCULAR VOLUME 94.1 FL (78-98); MEAN PLATELET VOLUME 8.5 FL (7.4-10.4); MONOCYTES # (AUTO) 1.2 X10'3 (0-0.9); MONOCYTES % (AUTO) 9.8 % (2-12); NEUTROPHILS % (AUTO) 65.3 % (42-75); PLATELET COUNT 182 X10'3 (140-440); RED BLOOD COUNT 2.56 X10'6 (4.20-5.60); RED CELL DISTRIBUTION WIDTH 20.1 % (11.5-14.5); WHITE BLOOD COUNT 12.2 X10'3 (4.5-11.0)
[2022-09-18 13:42] LABS: BACTERIA,URINE 3+ /HPF (Neg); MUCUS STRANDS NONE SEEN /LPF (Neg); RBC,URINE 0-2 /HPF (0-2); SQUAMOUS EPITHELIAL CELL,UR NONE SEEN /LPF (FEW); TRANSITIONAL EPI CELLS,URINE FEW /HPF; WBC CLUMPS,URINE MANY /HPF (NEGATIVE); WBC,URINE TNTC /HPF (0-4)
[2022-09-18 13:49] LABS: ALANINE AMINOTRANSFERASE 21 U/L (12-78); ALBUMIN 2.1 G/DL (3.4-5.0); ALBUMIN/GLOBULIN RATIO 0.4 (1.1-1.5); ALKALINE PHOSPHATASE 107 IU/L (46-116); ANION GAP 10 (8-16); ASPARTATE AMINO TRANSFERASE 30 U/L (10-37); BILIRUBIN,TOTAL 0.6 MG/DL (0.1-1.0); BLOOD UREA NITROGEN 53 MG/DL (7-18); CALCIUM 9.4 MG/DL (8.5-10.1); CHLORIDE 110 MMOL/L (99-107); GLUCOSE 107 MG/DL (70-104); POTASSIUM 4.7 MMOL/L (3.5-5.1); SODIUM 141 MMOL/L (135-145); TOTAL CARBON DIOXIDE 21.3 MMOL/L (24-32); TOTAL PROTEIN 6.8 G/DL (6.4-8.2); eCRCL 39 ML/MIN; eGFR 53 ML/MIN
[2022-09-18 13:55] LABS: PRO BRAIN NATRIURETIC PEPTIDE 2669 PG/ML (0-450)
--- NOTE | 2022-09-18 14:22 | NUR ---
PER LUIS COSME POA/PT SON PT IS A FULL CODE
--- NOTE | 2022-09-18 14:37 | NUR ---
PER LUIS MAIN PT NEEDS TO WEAR 2L O2 BNC WHILE SLEEPING.
[2022-09-18 15:07] LABS: PLATELET ESTIMATE NORMAL
[2022-09-18 15:08] LABS: ANISOCYTOSIS 3+; HYPOCHROMASIA 1+; POLYCHROMASIA 1+; SPHEROCYTES FEW
[2022-09-18 15:09] LABS: ROULEAUX 1+
[2022-09-18] MEDS: amiodarone/D5 360MG/200ML BAG 200 ML IV SCH ×2 (15:11→20:41)
[2022-09-18] MEDS ORDERED: CefTRIAXone/D5W-Rocephin 1gm 50 ML IV ONE (15:25)
[2022-09-18] MEDS ORDERED: normal saline 1000ML IV soln IVB ONE (16:10)
--- NOTE | 2022-09-18 16:52 | NUR ---
FEED RESEARCH AIDE RAJ IN ROOM EVALUATING PATIENT
[2022-09-18] MEDS ORDERED: insulin regular, human U-100 3ml vial - multi-dose SQ SCH (17:05)
[2022-09-18] MEDS ORDERED: amiodarone/D5 360MG/200ML BAG 200 ML IV SCH (17:05)
[2022-09-18] MEDS ORDERED: MESSAGE TO PHARMACY PO ONE (17:05)
[2022-09-18] MEDS ORDERED: glucagon, human recombinant 1mg kit SUBCUT PRN (17:05)
[2022-09-18] MEDS ORDERED: dextrose 50%-water 50ml dispensing syringe IV PRN ×2 (17:05)
[2022-09-18] MEDS ORDERED: DEXTROSE 15 GM of carb/4 tabs (each vial/BOTTLE has 4 tablets) PO PRN ×2 (17:05)
[2022-09-18] MEDS: normal saline 1000ml 1,000 ML IV SCH ×2 (17:57→19:34)
--- NOTE | 2022-09-18 18:54 | NUR ---
DR RAJ SERNA MD NOTIFIED RN THAT SHE ORD A 2ND BOLUS OF AMIODARONE. THE ORD WAS NOT SHOWING ACTIVE ON THE APR SO RN CALLED THE PHARM AND PHARMACIST CXL THE 2ND BOLUS D/T SHE THOUGHT IT WAS A DUPLICATE ORD. PHARMACIST WILL REACTIVATE ORD AND RN WILL ADMIN.
[2022-09-18] MEDS ORDERED: morphine 2 MG/ML inj. syringe IV PRN (19:10)
[2022-09-18] MEDS ORDERED: ondansetron/PF 4mg/2ml inj IV PRN (19:10)
[2022-09-18] MEDS ORDERED: magnesium hydroxide 30ml (MOM) UD suspension PO PRN (19:10)
[2022-09-18] MEDS ORDERED: acetaminophen 325mg tablet PO PRN ×2 (19:10)
[2022-09-18] MEDS ORDERED: LidoCAINE 2% Topical Jelly 11mL syringe TOP ONE (19:10)
[2022-09-18] MEDS ORDERED: morphine 4 MG/ML inj SYRINge IV PRN (19:10)
--- NOTE | 2022-09-18 19:53 | NUR ---
PT IS HIGH ACUITY ICU PT. JOSEPH ANDERSON WILL COMPLETE AND CHART FULL ASSESSMENT/TAKE PICS OF WOUND/ORD WOUND CARE CONSULT.
[2022-09-18] MEDS: famotidine 20mg tablet PO SCH (20:00)
[2022-09-18] MEDS ORDERED: famotidine 20MG/2.5ML oral suspension PO SCH (20:00)
--- NOTE | 2022-09-18 20:38 | NUR ---
NOTIFED NEWS WRITER ANTHONY OF PTS SOFT BP 95/55 MAP 62. ORDERS RECEIVED TO CONTINUE AMIODARONE DRIP ORDERED LONG MAP IS MAINTAINED OVER 60 AND PT IS MAKING URINE AND MENTATING PROPERLY
[2022-09-18] MEDS: cefepime 1GM/NS ADD-VANTAGE 100 ML IV SCH (21:32)
[2022-09-18] MEDS: heparin, porcine 5000 units/ml vial SQ SCH (23:58)
[2022-09-19] VITALS (30 sets, daily range): BP systolic 85–120; BP diastolic 48–85; PULSE 89–122; RESP 12–29; TEMP 97.5; O2SAT 90–100
--- NOTE | 2022-09-19 | NUR ---
Patient in room CICU 2013. I have received report from Ayanna RN and had the opportunity to ask questions and assume patient care.
[2022-09-19] MEDS ORDERED: NYST15CR36 TOP (01:25)
[2022-09-19] MEDS ORDERED: SCOP1PAT11 TOP (01:25)
[2022-09-19] MEDS ORDERED: VENL75TA90 PO (01:25)
[2022-09-19] MEDS ORDERED: TRAM50TA2 PO (01:31)
[2022-09-19] MEDS ORDERED: POLY17PO10 PO (01:31)
[2022-09-19] MEDS ORDERED: HYDR-3965 PO (01:33)
[2022-09-19] MEDS ORDERED: ONDA4TAB12 PO (01:36)
[2022-09-19] MEDS: amiodarone/D5 360MG/200ML BAG 200 ML IV SCH ×2 (01:50→09:45)
[2022-09-19 02:55] LABS: BASOPHILS # (AUTO) 0.1 X10'3 (0-0.2); BASOPHILS % (AUTO) 1.1 % (0-1); EOSINOPHILS # (AUTO) 0.1 X10'3 (0-0.9); EOSINOPHILS % (AUTO) 1.4 % (0-6); LYMPHOCYTES # (AUTO) 2.4 X10'3 (1.1-4.8); LYMPHOCYTES % (AUTO) 28.6 % (21-51); MEAN CORPUSCULAR HEMOGLOBIN 30.2 PG (27.0-31.0); MEAN CORPUSCULAR VOLUME 94.6 FL (78-98); MEAN PLATELET VOLUME 8.4 FL (7.4-10.4); MONOCYTES # (AUTO) 0.7 X10'3 (0-0.9); MONOCYTES % (AUTO) 8.2 % (2-12); NEUTROPHILS # (AUTO) 5.1 X10'3 (1.8-7.7); NEUTROPHILS % (AUTO) 60.7 % (42-75); PLATELET COUNT 151 X10'3 (140-440); RED BLOOD COUNT 2.25 X10'6 (4.20-5.60); RED CELL DISTRIBUTION WIDTH 19.7 % (11.5-14.5); WHITE BLOOD COUNT 8.4 X10'3 (4.5-11.0)
[2022-09-19 03:02] LABS: HEMATOCRIT 21.3 % (35.0-45.0); HEMOGLOBIN 6.8 g/dl (12.0-16.0)
[2022-09-19 03:08] LABS: ALANINE AMINOTRANSFERASE 22 U/L (12-78); ALBUMIN 1.8 G/DL (3.4-5.0); ALBUMIN/GLOBULIN RATIO 0.4 (1.1-1.5); ALKALINE PHOSPHATASE 95 IU/L (46-116); ANION GAP 12 (8-16); ASPARTATE AMINO TRANSFERASE 27 U/L (10-37); BILIRUBIN,TOTAL 0.6 MG/DL (0.1-1.0); BLOOD UREA NITROGEN 50 MG/DL (7-18); BUN/CREATININE RATIO 55.6 (10.0-20.0); CALCIUM 9.5 MG/DL (8.5-10.1); CHLORIDE 113 MMOL/L (99-107); GLUCOSE 103 MG/DL (70-104); POTASSIUM 4.5 MMOL/L (3.5-5.1); SODIUM 142 MMOL/L (135-145); TOTAL CARBON DIOXIDE 17.4 MMOL/L (24-32); eCRCL 44 ML/MIN; eGFR 60 ML/MIN
--- NOTE | 2022-09-19 06:38 | NUR ---
Problems reprioritized. Patient report given, questions answered & plan of care reviewed with Yoli blanchard.
--- NOTE | 2022-09-19 07:40 | NUR ---
Received report from MARISOL Talamantes
[2022-09-19] MEDS ORDERED: amiodarone 200mg tablet PO ONE (08:00)
[2022-09-19] MEDS: famotidine 20mg tablet PO SCH ×2 (09:22→19:53)
[2022-09-19] MEDS: cefepime 1GM/NS ADD-VANTAGE 100 ML IV SCH ×2 (09:22→19:53)
[2022-09-19] MEDS: venlafaxine 37.5mg tablet PO SCH (09:25)
[2022-09-19] MEDS: heparin, porcine 5000 units/ml vial SQ SCH ×3 (09:42→23:38)
--- NOTE | 2022-09-19 10:13 | NUR ---
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 Pt AOx1/confused and currently NPO per EMR. Pending Ileostomy output documentation this admit in EMR. Will monitor for nutrition intervention needs this admit. Rec: 1. advance diet as medically indicated to low residue per HISTORICAL MANUSCRIPTS CURATOR/MD recs 2. IF to remain NPO w/ unsafe/limited PO ability; consider EN for nutrition needs 3. routine MVI once PO per physician discretion 4. bowel regimen per physician 5. daily wt Addendum: 09/19/22 at [address] Amended: Links added.
[2022-09-19 10:18] LABS: BILIRUBIN,DIRECT 0.3 MG/DL (0-0.3); FREE T4 (FREE THYROXINE) 1.43 NG/DL (0.73-1.40); THYROID STIMULATING HORMONE 0.86 ulU/ml (0.34-4.50)
[2022-09-19] MEDS ORDERED: metoprolol tartrate 12.5mg (1/2 tablet) PO ONE ×2 (10:45→20:00)
--- NOTE | 2022-09-19 11:50 | NUR ---
TPN Consult: Per charge hand, pt to resume TPN this admit since on PRINCIPAL SECRETARY per oven roaster. Noted pt advanced to regular diet as well; ISAIAH d/w pt RN who reports no swallowing issues currently though if decreased intake then EN will be next step followed by weaning of PN per oven roaster. RD d/w RN recommends low-residue diet given Ileostomy status if MD agreeable. Agree that EN would be optimal nutrition strategy if inadequate intake. TPN recs below; will monitor for tolerance and further nutrition intervention needs. Rec: 1. Continuous TPN per MD using 2:1 Clinimix E 5/20 at 90ml/hr goal w/ separate 100ml 20% ILE to run 12 hours daily at 8.33ml/hr. In total, to provide 2160ml volume/day, 108g AA, 432g DEX (3.95mg/kg/min), and 2101 kcals. 2. advance diet as medically indicated to low residue per RACEHORSE TRAINER/MD recs 3. IF to remain NPO w/ unsafe/limited PO ability; consider EN for nutrition needs 4. TG/PALB Q /; daily scaled wt 5. routine MVI w/ PO per physician discretion 6. bowel regimen per physician Addendum: 09/19/22 at [address] Amended: Links added.
[2022-09-19 12:03] LABS: BASOPHILS # (AUTO) 0.1 X10'3 (0-0.2); BASOPHILS % (AUTO) 1.4 % (0-1); EOSINOPHILS # (AUTO) 0.1 X10'3 (0-0.9); EOSINOPHILS % (AUTO) 1.2 % (0-6); HEMATOCRIT 27.2 % (35.0-45.0); HEMOGLOBIN 8.7 g/dl (12.0-16.0); LYMPHOCYTES # (AUTO) 2.2 X10'3 (1.1-4.8); MEAN CORPUSCULAR HEMOGLOBIN 29.8 PG (27.0-31.0); MEAN CORPUSCULAR VOLUME 93.3 FL (78-98); MEAN PLATELET VOLUME 8.4 FL (7.4-10.4); MONOCYTES # (AUTO) 0.5 X10'3 (0-0.9); MONOCYTES % (AUTO) 6.9 % (2-12); NEUTROPHILS # (AUTO) 4.9 X10'3 (1.8-7.7); NEUTROPHILS % (AUTO) 62.5 % (42-75); PLATELET COUNT 167 X10'3 (140-440); RED BLOOD COUNT 2.91 X10'6 (4.20-5.60); WHITE BLOOD COUNT 7.8 X10'3 (4.5-11.0)
[2022-09-19] MEDS ORDERED: Dextrose 10%-water IV solution 1,000 ML IV PRN (12:20)
[2022-09-19] MEDS ORDERED: fat emulsion 20% inj. 100 ML IV SCH (13:00)
[2022-09-19] MEDS ORDERED: ZINC/COPPER/MANGANESE/SELENIUM 1 ML, chromic chloride inj. 10 MCG in AA 5%/CALCIUM/LYTE... IV SCH (13:00)
[2022-09-19] MEDS: normal saline 1000ml 1,000 ML IV SCH ×2 (13:05→22:40)
[2022-09-19] MEDS ORDERED: magnesium 4gm in 100ml NS 100 ML IV PRN (13:10)
[2022-09-19] MEDS ORDERED: magnesium Cl slow-release 64mg tablet PO PRN (13:10)
[2022-09-19] MEDS ORDERED: magnesium 2GM in 50ml NS 50 ML IV PRN (13:10)
[2022-09-19] MEDS ORDERED: potassium Cl 40MEQ/1/2NS 520ml 520 ML IV PRN (13:10)
[2022-09-19] MEDS ORDERED: potassium Cl 40MEQ/270ML bag 270 ML IV PRN (13:10)
[2022-09-19] MEDS ORDERED: sodium phosphate inj. 15 MMOL in dextrose 5%-water 250 ML IV PRN (13:10)
[2022-09-19] MEDS ORDERED: Neutra Phos packet PO PRN (13:10)
[2022-09-19] MEDS ORDERED: potassium Cl 20 mEq SR tablet PO PRN ×2 (13:10)
[2022-09-19] MEDS ORDERED: sodium phosphate inj. 30 MMOL in dextrose 5%-water 250 ML IV PRN (13:10)
[2022-09-19] MEDS ORDERED: normal saline 500ml IV soln 1,000 ML IV ONE (14:10)
[2022-09-19] MEDS ORDERED: ondansetron 4mg rapidly disintigrating tab PO PRN (15:50)
--- NOTE | 2022-09-19 18:30 | NUR ---
Patient in room CICU 2013. I have received report from Jasmina DAMON and had the opportunity to ask questions and assume patient care.
--- NOTE | 2022-09-19 19:18 | NUR ---
Report given to MARISOL Jasso.
[2022-09-19] MEDS: metoprolol tartrate 12.5mg (1/2 tablet) PO SCH (19:53)
[2022-09-19 19:54] LABS: ALBUMIN 1.9 G/DL (3.4-5.0); ANION GAP 13 (8-16); BLOOD UREA NITROGEN 46 MG/DL (7-18); BUN/CREATININE RATIO 44.2 (10.0-20.0); CALCIUM 9.1 MG/DL (8.5-10.1); CHLORIDE 112 MMOL/L (99-107); CREATININE 1.04 MG/DL (0.40-0.90); GLUCOSE 100 MG/DL (70-104); MAGNESIUM 1.3 MG/DL (1.5-2.4); SODIUM 140 MMOL/L (135-145); TOTAL CARBON DIOXIDE 15.2 MMOL/L (24-32); eCRCL 38 ML/MIN; eGFR 51 ML/MIN
[2022-09-19 19:58] LABS: OCCULT BLOOD STOOL NEGATIVE (Neg)
[2022-09-19] MEDS: amiodarone 200mg tablet PO SCH (20:00)
[2022-09-20] VITALS (14 sets, daily range): BP systolic 87–134; BP diastolic 52–80; PULSE 88–117; RESP 12–26; TEMP 97.6–99.3; O2SAT 91–100
--- NOTE | 2022-09-20 02:08 | NUR ---
Patient has not slept tonight. Continues to fidget with O2, lines and sheets. Complains of no pain. repositioned for comfort.
--- NOTE | 2022-09-20 04:54 | NUR ---
Patient continues to be restless, pulling all lines and cords. SCDs removed per patient request.
--- NOTE | 2022-09-20 06:16 | NUR ---
Problems reprioritized. Patient report given, questions answered & plan of care reviewed with Caleb DAMON.
[2022-09-20 06:59] LABS: BASOPHILS # (AUTO) 0.1 X10'3 (0-0.2); BASOPHILS % (AUTO) 1.3 % (0-1); EOSINOPHILS # (AUTO) 0.1 X10'3 (0-0.9); EOSINOPHILS % (AUTO) 2.3 % (0-6); HEMATOCRIT 25.3 % (35.0-45.0); HEMOGLOBIN 8.3 g/dl (12.0-16.0); LYMPHOCYTES # (AUTO) 1.3 X10'3 (1.1-4.8); LYMPHOCYTES % (AUTO) 27.6 % (21-51); MEAN CORPUSCULAR HEMOGLOBIN 30.2 PG (27.0-31.0); MEAN CORPUSCULAR HGB CONC 32.9 g/dL (33.0-36.5); MEAN CORPUSCULAR VOLUME 91.9 FL (78-98); MEAN PLATELET VOLUME 8.4 FL (7.4-10.4); MONOCYTES # (AUTO) 0.4 X10'3 (0-0.9); MONOCYTES % (AUTO) 8.4 % (2-12); NEUTROPHILS # (AUTO) 2.9 X10'3 (1.8-7.7); NEUTROPHILS % (AUTO) 60.4 % (42-75); PLATELET COUNT 145 X10'3 (140-440); RED BLOOD COUNT 2.75 X10'6 (4.20-5.60); RED CELL DISTRIBUTION WIDTH 18.5 % (11.5-14.5); WHITE BLOOD COUNT 4.8 X10'3 (4.5-11.0)
[2022-09-20 07:22] LABS: ALANINE AMINOTRANSFERASE 22 U/L (12-78); ALBUMIN 1.8 G/DL (3.4-5.0); ALBUMIN/GLOBULIN RATIO 0.4 (1.1-1.5); ALKALINE PHOSPHATASE 91 IU/L (46-116); ANION GAP 12 (8-16); ASPARTATE AMINO TRANSFERASE 24 U/L (10-37); BILIRUBIN,TOTAL 0.7 MG/DL (0.1-1.0); BLOOD UREA NITROGEN 47 MG/DL (7-18); BUN/CREATININE RATIO 43.5 (10.0-20.0); CALCIUM 9.3 MG/DL (8.5-10.1); CHLORIDE 114 MMOL/L (99-107); CREATININE 1.08 MG/DL (0.40-0.90); GLUCOSE 90 MG/DL (70-104); MAGNESIUM 2.6 MG/DL (1.5-2.4); PHOSPHORUS 4.1 MG/DL (2.3-4.5); POTASSIUM 4.3 MMOL/L (3.5-5.1); PREALBUMIN 12.7 MG/DL (19-36); SODIUM 140 MMOL/L (135-145); TOTAL PROTEIN 5.9 G/DL (6.4-8.2); TRIGLYCERIDES 101 MG/DL (20-135); eCRCL 36 ML/MIN; eGFR 49 ML/MIN
[2022-09-20 07:32] LABS: TOTAL CARBON DIOXIDE 14.2 MMOL/L (24-32)
[2022-09-20] MEDS ORDERED: metoprolol tartrate 12.5mg (1/2 tablet) PO SCH (08:00)
[2022-09-20] MEDS: K and/or MAG REPLACEMENT MC SCH (08:00)
[2022-09-20] MEDS: normal saline 1000ml 1,000 ML IV SCH ×2 (09:05→21:51)
[2022-09-20] MEDS: amiodarone 200mg tablet PO SCH ×2 (10:06→21:13)
[2022-09-20] MEDS: cefepime 1GM/NS ADD-VANTAGE 100 ML IV SCH (10:06)
[2022-09-20] MEDS: famotidine 20mg tablet PO SCH ×2 (10:07→21:13)
[2022-09-20] MEDS: heparin, porcine 5000 units/ml vial SQ SCH ×4 (10:07→21:14)
[2022-09-20] MEDS: venlafaxine 37.5mg tablet PO SCH (10:25)
[2022-09-20] MEDS: metoprolol tartrate 12.5mg (1/2 tablet) PO SCH ×2 (10:52→21:13)
--- NOTE | 2022-09-20 10:57 | NUR ---
F/u 09/20: TPN cancelled yesterday not started and pt PO 75% dinner last night pending breakfast PO this AM as woke up late w/ no swallowing issues per RN. Will monitor for PO trends and nutrition intervention needs. Rec: 1. continue low residue; encourage PO 2. IF unsafe/limited PO ability; consider EN for nutrition needs 3. routine MVI w/ PO per physician discretion 4. bowel regimen per physician; monitor Ileostomy output 5. daily scaled wt Addendum: 09/20/22 at [address] Amended: Links added.
--- NOTE | 2022-09-20 12:30 | NUR ---
Pt transferred to room 3009. Report given to MARISOL Coyle
[2022-09-20] MEDS ORDERED: cefepime 1GM/NS ADD-VANTAGE 100 ML IV SCH (13:04)
--- NOTE | 2022-09-20 13:54 | NUR ---
PRESSURE ULCER EDUCATION: DEFINITION: A pressure ulcer is an area of skin that breaks down when you stay in one position too long. The constant pressure against the skin reduces the blood flow to that area and the affected tissue dies. CAUSES: "Being bedridden or in a wheelchair "Fragile skin "Having a chronic condition, such as diabetes or vascular disease "Inability to move certain parts of your body without assistance "Older age "Incontinence of urine or stool SYMPTOMS: "A reddened area that DOES NOT turn white when pressed on - this can be the beginning of a pressure ulcer "A blister, deep sore or a crater - these can be advanced pressure ulcers FIRST AID: "Relieve the pressure on this area "Keep the area clean and dry "Call your primary doctor if you see any of the above symptoms "DO NOT massage the area "DO NOT use a donut shaped or ring shaped pillow- these actually interfere with the blood flow and cause complications PREVENTION: "Check for pressure ulcers everyday "Change position at least every two hours to relieve pressure "Use items that help relieve pressure- pillows, sheepskin, foam padding, and powders. "Keep skin clean and dry "Eat healthy well balanced meals "Exercise daily IF YOU SEE ANY OF THESE SYMPTOMS WHILE IN THE HOSPITAL - TELL YOUR NURSE IMMEDIATELY. IF YOU SEE ANY OF THESE SYMPTOMS WHILE AT HOME OR HAVE ANY QUESTIONS OR CONCERNS ABOUT PRESSURE ULCERS - CALL YOUR PRIMARY DOCTOR IMMEDIATELY. Addendum: 09/20/22 at 1354 by Kasandra Luo LVN Amended: Links added.
[2022-09-20] MEDS ORDERED: furosemide 20 MG/2 ML vial IV ONE (16:25)
[2022-09-20] MEDS ORDERED: morphine 2 MG/ML inj. syringe IV PRN (16:25)
--- NOTE | 2022-09-20 16:25 | NUR ---
Nutrition Consult "Does not need TPN": ISAIAH met w/ MD and discussed agreement that pt does not need TPN this admit w/ Ileostomy functioning and good first meal intake last night pending further PO trends documentation today; see prior RD note. Addendum: 09/20/22 at [address] Amended: Links added.
--- NOTE | 2022-09-20 18:14 | NUR ---
Problems reprioritized. Patient report given, questions answered & plan of care reviewed with Rebecca. Addendum: 09/20/22 at 1816 by Leonides Pham RN Amended: Links added.
[2022-09-21 01:40] VITALS: BP 110/70; PULSE 95; RESP 18; TEMP 97.7; O2SAT 99
--- NOTE | 2022-09-21 01:50 | NUR ---
PT BLOOD SUGAR HAS BEEN IN THE 70'S SPOKE WITH DR JAMES WHO ORDERED D5 @ 75 MLS/HR
[2022-09-21] MEDS ORDERED: dextrose 5%-water 1,000 ML IV SCH (02:00)
--- NOTE | 2022-09-21 06:25 | NUR ---
Problems reprioritized. Patient report given, questions answered & plan of care reviewed with MARISOL Watson.
--- NOTE | 2022-09-21 06:48 | NUR ---
Patient in room PCU 3009. I have received report from Rebecca DAMON and had the opportunity to ask questions and assume patient care.
[2022-09-21 07:00] VITALS: BP 112/56; PULSE 113; RESP 20; TEMP 98.1; O2SAT 94
[2022-09-21 07:48] LABS: BASOPHILS # (AUTO) 0.1 X10'3 (0-0.2); BASOPHILS % (AUTO) 1.2 % (0-1); EOSINOPHILS # (AUTO) 0.2 X10'3 (0-0.9); EOSINOPHILS % (AUTO) 3.9 % (0-6); HEMATOCRIT 26.2 % (35.0-45.0); HEMOGLOBIN 8.5 g/dl (12.0-16.0); LYMPHOCYTES # (AUTO) 1.4 X10'3 (1.1-4.8); LYMPHOCYTES % (AUTO) 31.7 % (21-51); MEAN CORPUSCULAR HGB CONC 32.3 g/dL (33.0-36.5); MEAN CORPUSCULAR VOLUME 92.8 FL (78-98); MEAN PLATELET VOLUME 8.3 FL (7.4-10.4); MONOCYTES # (AUTO) 0.4 X10'3 (0-0.9); NEUTROPHILS # (AUTO) 2.4 X10'3 (1.8-7.7); NEUTROPHILS % (AUTO) 55.2 % (42-75); PLATELET COUNT 185 X10'3 (140-440); RED BLOOD COUNT 2.83 X10'6 (4.20-5.60); RED CELL DISTRIBUTION WIDTH 18.7 % (11.5-14.5); WHITE BLOOD COUNT 4.4 X10'3 (4.5-11.0)
[2022-09-21 08:00] VITALS: RESP 20; O2SAT 94
[2022-09-21] MEDS ORDERED: levoFLOXACIN-Levaquin 500mg/D5 100 ML IV SCH (08:00)
[2022-09-21] MEDS: K and/or MAG REPLACEMENT MC SCH (08:00)
[2022-09-21] MEDS ORDERED: MVI, adult No.4 with vit. K 10 ML in dextrose 5% water 500ml 500 ML IV SCH ×2 (08:00)
[2022-09-21 08:49] LABS: ALANINE AMINOTRANSFERASE 21 U/L (12-78); ALBUMIN 2.1 G/DL (3.4-5.0); ALBUMIN/GLOBULIN RATIO 0.5 (1.1-1.5); ALKALINE PHOSPHATASE 98 IU/L (46-116); ANION GAP 12 (8-16); ASPARTATE AMINO TRANSFERASE 19 U/L (10-37); BILIRUBIN,TOTAL 0.9 MG/DL (0.1-1.0); BLOOD UREA NITROGEN 43 MG/DL (7-18); BUN/CREATININE RATIO 36.4 (10.0-20.0); CHLORIDE 110 MMOL/L (99-107); CREATININE 1.18 MG/DL (0.40-0.90); GLUCOSE 95 MG/DL (70-104); MAGNESIUM 2.1 MG/DL (1.5-2.4); PHOSPHORUS 4.3 MG/DL (2.3-4.5); POTASSIUM 3.7 MMOL/L (3.5-5.1); SODIUM 139 MMOL/L (135-145); TOTAL CARBON DIOXIDE 17.1 MMOL/L (24-32); TOTAL PROTEIN 6.2 G/DL (6.4-8.2); eCRCL 33 ML/MIN; eGFR 44 ML/MIN
[2022-09-21] MEDS: metoprolol tartrate 12.5mg (1/2 tablet) PO SCH (09:21)
[2022-09-21] MEDS: famotidine 20mg tablet PO SCH (09:21)
[2022-09-21] MEDS: amiodarone 200mg tablet PO SCH (09:21)
[2022-09-21] MEDS: venlafaxine 37.5mg tablet PO SCH (09:22)
[2022-09-21] MEDS: heparin, porcine 5000 units/ml vial SQ SCH (09:22)
[2022-09-21 09:52] LABS: ANISOCYTOSIS 2+; HYPOCHROMASIA 1+; PLATELET ESTIMATE NORMAL; TOTAL CELLS COUNTED 100
[2022-09-21 09:54] LABS: BURR CELLS FEW
[2022-09-21 11:00] VITALS: BP 97/59; PULSE 110; RESP 16; TEMP 98; O2SAT 94
[2022-09-21 15:00] VITALS: BP 91/53; PULSE 65; RESP 18; TEMP 97.9; O2SAT 98
[2022-09-21 18:00] VITALS: BP 107/55; PULSE 100; RESP 16; TEMP 97.9; O2SAT 97
--- NOTE | 2022-09-21 18:40 | NUR ---
Problems reprioritized. Patient report given, questions answered & plan of care reviewed with Rebecca DAMON.
--- NOTE | 2022-09-21 19:15 | NUR ---
PT PLEASANT AND COOPERATIVE VITAL SIGNS STABLE. PT PICKED UP BY [facility] TRANSPORT HEADED TO [facility] FOR CARE. [facility] NOTIFIED THAT PATIENT DID NOT RECEIVE NIGHT TIME MEDICATIONS. PT HAD DINNER HERE BEFORE HEADING OUT. TELEMONITOR RETURNED TO TELEBOX. Addendum: 09/21/22 at 1930 by Rebecca Millan RN BELONGINGS WERE TAKEN BY GRANDDAUGHTER AT PATIENT'S REQUEST.
[2022-09-21] MEDS ORDERED: metoprolol tartrate 12.5mg (1/2 tablet) PO SCH (20:00)
[2022-09-22] MEDS ORDERED: levoFLOXACIN-Levaquin 250mg/D5 50 ML IV SCH (08:00)
== END 2022-09-21 19:00 | DRG 871 ==
LOC: ER 12:37 → ED HOLD 19:14 → CICU 2S 23:20 → PCU 3S 09-20 13:30
PROVIDERS: ADMIT Internal Medicine Critical Care Medicine; ATTEND Internal Medicine Critical Care Medicine
PROC: 30233N1 Transfusion of Nonautologous Red Blood Cells into Peripheral Vein, Percutaneous Approach (ICD-10-PCS; principal; 2022-09-19)
DX: A41.51 Sepsis due to Escherichia coli [E. coli] (principal); G93.41 Metabolic encephalopathy; E87.20 Acidosis, unspecified; I47.20 Ventricular tachycardia, unspecified; I48.92 Unspecified atrial flutter; N39.0 Urinary tract infection, site not specified; N18.9 Chronic kidney disease, unspecified; D64.9 Anemia, unspecified; I12.9 Hypertensive chronic kidney disease with stage 1 through stage 4 chronic kidney disease, or unspecified chronic kidney disease; I48.0 Paroxysmal atrial fibrillation; B96.5 Pseudomonas (aeruginosa) (mallei) (pseudomallei) as the cause of diseases classified elsewhere; I95.9 Hypotension, unspecified; F03.90 Unspecified dementia, unspecified severity, without behavioral disturbance, psychotic disturbance, mood disturbance, and anxiety; Z80.0 Family history of malignant neoplasm of digestive organs; Z80.41 Family history of malignant neoplasm of ovary; Z87.440 Personal history of urinary (tract) infections; Z79.899 Other long term (current) drug therapy
CPT/HCPCS: 36415; 36430; 71045; 80048; 80053; 81001; 82248; 82272; 82948; 83605; 83735; 83880; 84100; 84134; 84145; 84439; 84443; 84478; 84484; 85007; 85008; 85025; 86885; 86900; 86901; 86920; 87040; 87077; 87081; 87088; 87186; 93005; 93308; 99285; A4314; A4615; A6213; A6449; C1758; G0378; J0282; J0692; J0696; J1644; J1940; J1956; J3475; J3490; J7030; J7040; J7070; P9016

== ENCOUNTER 2022-11-06 08:57 | Emergency (ER) | payer MEDICARE, OTHER ==
[~2022-11-06] VITALS: Ht 160 cm; Wt 86.4 kg
[~2022-11-06 08:57] MED LIST changes: -HEPA100D36 SQ; +HYDR-3965 PO; +NYST15CR36 TOP; +ONDA4TAB12 PO; +POLY17PO10 PO; +SCOP1PAT11 TOP; +TRAM50TA2 PO; -VENL-191 PO; +VENL75TA90 PO
[2022-11-06 09:06] VITALS: TEMP 98.3
[2022-11-06] MEDS ORDERED: ketorolac trometh. 30mg/ml inj. IM ONE (11:10)
[2022-11-06] MEDS ORDERED: NAPR-56 PO ×2 (12:09)
--- NOTE | 2022-11-06 12:29 | NUR ---
[facility]
--- NOTE | 2022-11-06 12:49 | NUR ---
Updated grand daughter at bedside regarding pt condition and pending transport back to [facility].
[2022-11-06 13:24] VITALS: BP 122/62; PULSE 75; RESP 20; O2SAT 100
[2022-11-16] MEDS ORDERED: DIGO125T97 PO (13:37)
[2022-11-16] MEDS ORDERED: DOCU-148 PO (13:38)
[2022-11-16] MEDS ORDERED: HEPA100D36 SQ (13:39)
[2022-11-16] MEDS ORDERED: IBUP-860 PO (13:40)
[2022-11-16] MEDS ORDERED: MECL-302 PO (13:41)
[2022-11-16] MEDS ORDERED: ACET325T57 PO (13:43)
[2022-11-16] MEDS ORDERED: HYDR-3965 PO (13:44)
== END 2022-11-06 13:42 | disposition home or self-care (01) ==
LOC: ER 08:58
DX: S39.012A Strain of muscle, fascia and tendon of lower back, initial encounter (principal); W18.39XA Other fall on same level, initial encounter; Y93.89 Activity, other specified; Y92.89 Other specified places as the place of occurrence of the external cause; Y99.8 Other external cause status
CPT/HCPCS: 72100; 96372; 99283; A6258; J1885; 99285